=== PATIENT | male | born 1940 | race Caucasian/White ===

== ENCOUNTER 2021-01-06 09:57 | Day surgery (SDC) | payer MEDICARE, OTHER, SELFPAY ==
[2021-01-02 14:57] VITALS: BMI 30.9
[2021-01-06] VITALS (11 sets, daily range): BP systolic 102–144; BP diastolic 56–85; PULSE 60–79; RESP 12–92; TEMP 34.2–36.1; O2SAT 22–100; BMI 30.9
[2021-01-06 10:33] LABS: COVID19 -Nasal RAPID Negative (Negative)
[2021-01-06] MEDS: LACTATED RINGERS 1,000 ML 42 ML IV (10:58)
--- NOTE | 2021-01-06 11:07 | PM.PREOP ---
Pre-operative Note Interval Note History & Physical reviewed/Exam performed by Physician: Yes Changes to H&P: No
[2021-01-06] MEDS: CEFAZOLIN 1 GM VIAL 2 GM IV (11:50)
--- NOTE | 2021-01-06 11:57 | SUR.OPER ---
Lithotomy on padded OR bed, head on pillow, arms secured on padded arm boards at <90 degrees abduction. Legs secured in padded yellow fins stirrups.
[2021-01-06] MEDS: WATER FOR INJECTION,STERILE 20 ML, mitoMYcin 20 MG INTRAVESIC (12:08)
--- NOTE | 2021-01-06 12:49 | SUR.PHASEI ---
received to PACU after general anesthesia. Report received from Dr Quiroz and KIMMIE Westbrook. Oral airway in place removed at 1223 without difficulty.
--- NOTE | 2021-01-06 12:50 | P.OP_ITS ---
Operative Date/Time/Diagnoses Date of procedure: 01/06/21 Time of procedure: 12:50 Pre-op diagnosis: Recurrent bladder cancer Post-op diagnosis: same Procedure & Clinicians Procedure: 1. Transurethral resection of bladder tumor (less than 0.5 cm). 2. Instillation mitomycin-C (20 mg). Same procedure as scheduled: Yes Indications: 1. Recurrent bladder cancer Surgeon: Sherly Mckeon Click Yes if Unassisted: Yes Anesthesia Type: General Operative Notes Findings: Approximately 5 mm spreading, papillary recurrences of low anterior bladder wall and left of midline. Closure Type: not applicable Specimen(s): none sent Estimated Blood Loss (mL): 0 Blood products transfused: none Procedure in detail: Patient was positioned supine was administered general anesthesia. The flexible endoscope was then passed lower urinary tract with the findings as described above. The lesion was then cautery destroyed using the Bugbee. Hemostasis was excellent. The bladder was left post should filled in the flexible cystoscope was removed. Next, a 16 Mongolian Noel catheter was inserted, the balloon inflated 10 cc, and the bladder contents drained. He 20 cc solution containing 20 mg of mitomycin-C were then instilled in the bladder and a plug positioned in the catheter outlet for anticipated 2 hour retention. The patient was then repositioned supine, was awakened, and transferred to [facility] for transport to PACU. Complications: none Post-operative Condition: stable Disposition: PACU Plan for aftercare: Discharge home.
--- NOTE | 2021-01-06 14:44 | SUR.PHASEII ---
Spoke with patient when care was assumed. Quiet, no concerns voiced. 1415 Noel drained by Jay Zheng RN per protocol. 1425 VS taken in prep for discharge. Room air sat 83-84% - patient placed on O2 at 2LNP. Dr. Mckeon notified.
--- NOTE | 2021-01-06 14:51 | SUR.PHASEII ---
RA sat 93-94%, O2 dc'd. Patient anxious to go home.
--- NOTE | 2021-01-06 15:23 | SUR.PHASEII ---
1500 L KIMMIE Eric dc'd IV, assisted patient with dressing and transfer into wheelchair. To car by Remigio Suarez RN. Discharge teaching given to son. Patient was anxious to go home, maintained adequate sat on room air
== END 2021-01-06 15:07 | disposition home or self-care (01) ==
PROVIDERS: PCP Student in an Organized Health Care Education/Training Program; Referring Provider Specialist; Visit Provider Specialist
PROC: (CPT 52224; principal; 2021-01-06 11:45)
DX: C67.9 Malignant neoplasm of bladder, unspecified (principal); E11.9 Type 2 diabetes mellitus without complications; I10 Essential (primary) hypertension; J44.9 Chronic obstructive pulmonary disease, unspecified; I50.9 Heart failure, unspecified; I48.91 Unspecified atrial fibrillation
CPT/HCPCS: 52224; 82962; 87635; 93005; 93010; J0690; J1100; J2405; J2704; J3010; J9280

== ENCOUNTER → 2021-04-25 07:57 | Outpatient (CLI) | payer MEDICARE, OTHER, SELFPAY ==
[2021-04-25 10:17] LABS: COVID19 -Nasal RAPID Negative (Negative)
== END ==
PROVIDERS: PCP Student in an Organized Health Care Education/Training Program; Visit Provider Specialist
DX: Z20.822 Contact with and (suspected) exposure to COVID-19 (principal)
CPT/HCPCS: 87635; C9803

== ENCOUNTER 2021-04-28 12:03 | Day surgery (SDC) | payer MEDICARE, OTHER, SELFPAY ==
[2021-04-17 12:16] VITALS: BMI 29.2
[2021-04-28] VITALS (9 sets, daily range): BP systolic 115–141; BP diastolic 56–89; PULSE 58–93; RESP 14–82; TEMP 36.1–36.6; O2SAT 16–98; BMI 29.0
[2021-04-28] MEDS: LACTATED RINGERS 1,000 ML 42 ML IV (13:28)
[2021-04-28] MEDS: VANCOMYCIN 1,000 MG/200 ML PIGGYBACK 200 MG IV (13:34)
--- NOTE | 2021-04-28 15:57 | PM.PREOP ---
Pre-operative Note Interval Note History & Physical reviewed/Exam performed by Physician: Yes Changes to H&P: No
--- NOTE | 2021-04-28 16:14 | SUR.OPER ---
Lithotomy on padded OR bed, head on pillow, arms secured on padded arm boards at <90 degrees abduction. Legs secured in padded yellow fins stirrups.
[2021-04-28] MEDS: GENTAMICIN 160 MG in SODIUM CHLORIDE 0.9% 100 ML 104 ML IV (16:23)
--- NOTE | 2021-04-28 16:36 | SUR.OPER ---
Bottom dentures and glasses in labelled biohazard bag; sent with patient to PACU from OR.
[2021-04-28] MEDS: WATER FOR INJECTION,STERILE 20 ML, mitoMYcin 20 MG INTRAVESIC (16:46)
--- NOTE | 2021-04-28 17:01 | PM.OP.1 ---
Operative Date/Time/Diagnoses Date of procedure: 04/28/21 Time of procedure: 17:01 Pre-op diagnosis: Recurrent superficial urothelial carcinoma the bladder Post-op diagnosis: same Procedure & Clinicians Procedure: 1. Cystoscopy/fulguration/destruction recurrent bladder tumor. 2. Cystoscopy/installation mitomycin-C (20 mg). Same procedure as scheduled: Yes Indications: 1. Recurrent superficial urothelial carcinoma the bladder. Surgeon: Sherly Mckeon Click Yes if Unassisted: Yes Anesthesia Type: General Operative Notes Findings: 1. Urethra-2 relatively focal strictures that were annular. The tip of the 22 [place] panendoscope successfully negotiate both with consequent dilation of both. 2. External sphincter-coapted 3. Prostate-no significant obstruction. For to 4.5 cm length. 4. Bladder-1 to 2+ trabeculation. There is a healing resection bed at the left trigone. No evidence of stone. Spreading papillary recurrence at left floor and posterior trigone with irregular margins. Closure Type: not applicable Specimen(s): none sent Applied: catheter (Sixteen [place]an Noel catheter with anticipated removal following mitomycin retention x2 hours.) Estimated Blood Loss (mL): 0 Tourniquet time (min): 0 Procedure in detail: The patient was positioned in supine was administered general anesthesia. He was then repositioned semi lithotomy the lower abdomen, genitalia, and groin were then prepped and draped in sterile fashion. The 22 [place] panendoscope was then passed lower urinary tract with the findings as described above. An 8 [place] Bugbee cautery probe was then passed within the working channel of the panendoscope. Intraoperative photographs were obtained of the recurrent neoplasm before cautery destruction. The bladder was then left partially full and all instrumentation was removed. Sixteen [place]an Noel catheter was then inserted in the lower urinary tract and the balloon inflated to 10 cc. The bladder contents were then drained. A 20 cc solution containing 20 mg mitomycin C were then instilled into the bladder and a catheter plug remained for anticipated 2 hour postoperative retention. The patient was then repositioned supine, was awakened, and was transferred to recovery in stable condition. Complications: none Post-operative Condition: stable Disposition: PACU Plan for aftercare: Discharge home.
--- NOTE | 2021-04-28 19:50 | SUR.PHASEII ---
pt discharged to home with family, pt cond stable, pt verbalized understanding of discharge instructions. All belongs sent home with patient.
== END 2021-04-28 19:30 | disposition home or self-care (01) ==
PROVIDERS: PCP Student in an Organized Health Care Education/Training Program; Referring Provider Specialist; Visit Provider Specialist
PROC: 0TBB8ZZ Excision of Bladder, Via Natural or Artificial Opening Endoscopic (ICD-10-PCS; CPT 52234; principal; 2021-04-28 13:15)
DX: C67.9 Malignant neoplasm of bladder, unspecified (principal); I25.10 Atherosclerotic heart disease of native coronary artery without angina pectoris; I25.2 Old myocardial infarction; I48.0 Paroxysmal atrial fibrillation; J44.9 Chronic obstructive pulmonary disease, unspecified; E11.9 Type 2 diabetes mellitus without complications; I10 Essential (primary) hypertension; Z79.84 Long term (current) use of oral hypoglycemic drugs
CPT/HCPCS: 52234; J2704; J3010; J9280

== ENCOUNTER → 2021-09-02 08:49 | Outpatient (CLI) | payer MEDICARE, OTHER, SELFPAY ==
[2021-09-02 13:02] LABS: Appearance Urine UA SL CLOUDY; Bilirubin Urine UA NEGATIVE (NEGATIVE); Color Urine UA YELLOW; Glucose Urine UA 2+ g/dL (Negative); Ketones Urine UA TRACE (NEGATIVE); Leukocyte Esterase Urine UA NEGATIVE (NEGATIVE); Nitrite Urine UA NEGATIVE (Negative); Occult Blood Urine UA 3+ (Negative); Protein Urine UA 1+ (Negative); Specific Gravity Urine UA 1.015 (1.000-1.035); Urobilinogen Urine UA 0.2 E.U./dL (0.2); pH Urine UA 6.5 (4.5-8.0)
[2021-09-02 13:14] LABS: Bacteria Urine None Seen; Culture Indicated Urine Cult Not Indicated; RBC Urine 30-100/HPF (0-5/HPF); Squamous Epithelial Cell Urine 1-5 /HPF (0-5/HPF); WBC Urine 0-1/HPF (0-5/HPF)
== END ==
PROVIDERS: PCP Student in an Organized Health Care Education/Training Program; Referring Provider Specialist; Visit Provider Specialist
DX: R30.0 Dysuria (principal)
CPT/HCPCS: 81001

== ENCOUNTER → 2021-09-11 13:54 | Outpatient (CLI) | payer MEDICARE, OTHER, SELFPAY ==
[2021-09-11 14:48] LABS: Appearance Urine UA SL CLOUDY; Bilirubin Urine UA NEGATIVE (NEGATIVE); Color Urine UA YELLOW; Glucose Urine UA NEGATIVE (Negative); Ketones Urine UA NEGATIVE (NEGATIVE); Leukocyte Esterase Urine UA NEGATIVE (NEGATIVE); Nitrite Urine UA NEGATIVE (Negative); Occult Blood Urine UA 3+ (Negative); Protein Urine UA 2+ (Negative); Urobilinogen Urine UA 0.2 E.U./dL (0.2); pH Urine UA 6.5 (4.5-8.0)
[2021-09-11 15:05] LABS: RBC Urine >100/HPF (0-5/HPF); Squamous Epithelial Cell Urine 1-5 /HPF (0-5/HPF); WBC Urine 1-5/HPF (0-5/HPF)
[2021-09-11 15:06] LABS: Bacteria Urine None Seen; Culture Indicated Urine Cult Not Indicated; Mucus Urine 1+ (Negative)
== END ==
PROVIDERS: PCP Student in an Organized Health Care Education/Training Program; Referring Provider Specialist; Visit Provider Specialist
DX: R30.0 Dysuria (principal)
CPT/HCPCS: 81001

== ENCOUNTER → 2021-09-26 10:57 | Outpatient (CLI) | payer MEDICARE, OTHER, SELFPAY ==
[2021-09-26 11:56] LABS: BUN Creatinine Ratio 20.3 (6-22); Blood Urea Nitrogen 14 mg/dL (9-20); Calcium 9.6 mg/dL (8.4-10.2); Carbon Dioxide 30 mmol/L (22-32); Chloride 100 mmol/L (98-107); Estimated Glomerular Filt Rate > 60.0 mL/min (>60); Glucose 105 mg/dL (80-110); HEMOLYSIS 15 (0-50); Potassium 4.5 mmol/L (3.4-5.1); Sodium 138 mmol/L (137-145)
--- NOTE | 2021-09-26 12:26 | DI.CT.S_ITS ---
PROCEDURE: CT ABDOMEN PELVIS WO/W CON INDICATIONS: hematuria; history primary bladder cancer TECHNIQUE: Optional 5 mm thick noncontrast images acquired from the diaphragm to the symphysis pubis. After the administration of intravenous contrast, 5 mm thick images acquired from the diaphragm to the symphysis pubis after a 10-minute delay. 2 mm thick coronal and sagittal reformats were then performed of the kidneys and ureters. For radiation dose reduction, the following was used: automated exposure control, adjustment of mA and/or kV according to patient size. COMPARISON: [facility], CT, CT ANGIO AORTA RUNOFF, 11/10/2019, 13:25. FINDINGS: Image quality: Excellent. Lung bases: Lung bases are clear. Heart size is normal. Urinary system: Both kidneys are normal in size, without hydronephrosis or nephrolithiasis on pre-contrast images. Vascular calcifications are seen in bilateral kidneys. Bilateral renal cysts are seen measures up to 3.3 x 3 cm in size in lower pole of left kidney and up to 3 x 3.2 cm in size in upper pole of right kidney unchanged from prior study in 2019. Nonspecific mild bilateral perinephric fat stranding is seen, no perinephric fluid collection. There is normal bilateral renal enhancement. Renal calyces appear normal in morphology when filled with contrast. Opacified portions of both ureters demonstrate normal caliber. There is suggestion of diffuse bladder wall thickening, no definite discrete bladder wall mass is seen. No calcified bladder stones. Mildly enlarged prostate gland with mass effect on floor of urinary bladder is seen. Other solid organs: Liver is normal in size and enhancement. Calcified stones are seen in dependent portion of gallbladder lumen. No gallbladder wall thickening or pericholecystic fluid. Biliary system is non dilated. Pancreas enhances normally. Spleen is normal in size and enhancement. No right adrenal nodules. 2.7 x 3.2 cm hypodense nodule involving left adrenal gland is again seen not significantly changed in size compared to previous study. Peritoneum and bowel: Bowel loops demonstrate normal wall thickness and caliber. Fecal stasis throughout the colon is seen. Sigmoid diverticulosis is noted, no evidence of acute diverticulitis. No free fluid or free air. Nodes and vessels: No retroperitoneal or mesenteric adenopathy by size criteria. Aorta and inferior vena cava are normal in size. Moderate atherosclerotic calcifications throughout abdominal aorta and bilateral iliac arteries are seen. Abdominal wall: No ventral hernias. Pelvis: No pathologic free pelvic fluid. No inguinal hernias or adenopathy. Bones: No suspicious bony lesions. No vertebral body compression fractures. Degenerative disc disease throughout lower thoracic and lumbar spine is seen. IMPRESSION: 1. Diffuse bladder wall thickening, no definite bladder wall mass is seen. Mildly enlarged prostate gland with mass effect on floor of urinary bladder. Urological correlation is recommended. 2. No renal stone or hydronephrosis. No enhancing renal lesion. Bilateral renal cysts as above. Normal appearing bilateral ureters. 3. Stable appearing 3.2 x 2.7 cm left adrenal nodule and may represent benign adrenal adenoma. 4. Cholelithiasis without evidence of acute cholecystitis. 5. Moderate atherosclerotic disease throughout abdominal aorta , its major branches and bilateral iliac arteries. Dictated by: Sonu Engle M.D. on 09/26/2021 at 14:13 Approved by: Sonu Engle M.D. on 09/26/2021 at 14:30
== END ==
PROVIDERS: PCP Student in an Organized Health Care Education/Training Program; Referring Provider Specialist; Visit Provider Specialist
DX: R31.9 Hematuria, unspecified (principal); N40.0 Benign prostatic hyperplasia without lower urinary tract symptoms; N28.1 Cyst of kidney, acquired; E27.9 Disorder of adrenal gland, unspecified; K80.20 Calculus of gallbladder without cholecystitis without obstruction; I70.0 Atherosclerosis of aorta; Z85.51 Personal history of malignant neoplasm of bladder
CPT/HCPCS: 36415; 74178; 80048

== ENCOUNTER → 2021-10-01 12:59 | Outpatient (CLI) | payer MEDICARE, OTHER, SELFPAY ==
[2021-10-01 13:58] LABS: Appearance Urine UA CLOUDY; Bilirubin Urine UA NEGATIVE (NEGATIVE); Color Urine UA YELLOW; Glucose Urine UA NEGATIVE (Negative); Ketones Urine UA NEGATIVE (NEGATIVE); Leukocyte Esterase Urine UA 1+ (NEGATIVE); Nitrite Urine UA NEGATIVE (Negative); Occult Blood Urine UA 3+ (Negative); Protein Urine UA TRACE (Negative); Urobilinogen Urine UA 0.2 E.U./dL (0.2); pH Urine UA 7.5 (4.5-8.0)
[2021-10-01 14:04] LABS: Bacteria Urine None Seen; RBC Urine >100/HPF (0-5/HPF); WBC Urine 10-30/HPF (0-5/HPF)
[2021-10-01 14:05] LABS: Culture Indicated Urine Specimen Cultured
== END ==
PROVIDERS: PCP Student in an Organized Health Care Education/Training Program; Referring Provider Specialist; Visit Provider Specialist
DX: R30.0 Dysuria (principal)
CPT/HCPCS: 81001; 87086

== ENCOUNTER → 2022-01-30 11:07 | Outpatient (CLI) | payer MEDICARE, OTHER, SELFPAY ==
[2022-01-30 11:55] LABS: COVID19 -Nasal RAPID Negative (Negative)
== END ==
PROVIDERS: PCP Student in an Organized Health Care Education/Training Program; Visit Provider Specialist
DX: Z20.822 Contact with and (suspected) exposure to COVID-19 (principal)
CPT/HCPCS: 87635; C9803

== ENCOUNTER 2022-02-02 09:35 | Day surgery (SDC) | payer MEDICARE, OTHER, SELFPAY ==
--- NOTE | 2022-02-02 | PATH_ITS ---
[facility] Accession Number: [id number] No. of containers..01 Tissue . 01 Material submitted: . bladder - BLADDER BIOPSY LEFT LATERAL WALL . 01 Diagnosis: Urinary Bladder, Left Lateral Wall, Biopsy: Extensively denuded urothelium with atypia, favor reactive/degenerative changes (see comment). Severe chronic cystitis. MRV 02/05/2022 1530 Local . 01 Comment: 8Immunostains are obtained, with the controls stained appropriately, in an attempt at further defining the atypical urothelial cells of interest. The latter show the following results: . P53: Wild type pattern. Cytokeratin 20: Variably positive. Ki-67: Focally increased. . These results are not conclusively discriminatory between a reactive process versus carcinoma in situ in that the cytokeratin 20 pattern appears abnormal, yet is not completely uniform (as would be expected in in situ lesion). Additionally, the Ki-67 is very focally increased with a vast majority showing a low proliferation rate. The wild type pattern of p53 supports a reactive process. Ultimately, the interpretation is favored to represent a reactive lesion, although this is not considered diagnostic. This case is also reviewed by Dr. Krystle Michelle, who concurs with the given interpretation. . *This test was developed and its performance characteristics determined by [facility]. It has not been cleared or approved by the U.S. Food and Drug Administration. The FDA has determined that such clearance or approval is not necessary. This test is used for clinical purposes. It should not be regarded as investigational or for research. . 01 Electronically signed: . Meenakshi Turner MD, Pathologist NPI- [id number] . 01 Gross description: . BLADDER BIOPSY LEFT LATERAL WALL: Received in formalin are multiple fragment(s) of vasques, soft tissue measuring 0.1 x 0.1 x 0.1 cm to 0.3 x 0.2 x 0.2 cm submitted entirely in 1 cassette(s) /[facility] 02/03/2022 0138 Local . 01 Pathologist provided ICD-10: C67.9 . 01 CPT . 264386, E19898, B98407 Specimen Comment: A courtesy copy of this report has been sent to [phone] Performed at: 01 [facility] [address] [place] [address], [place], [place] [id number] MD Phillip Downing MD Phone: [phone]
--- NOTE | 2022-02-02 | PATH_ITS ---
Note [facility] Accession Number: [id number] TESTS RESULT FLAG UNITS REF RANGE LAB Clinician Provided Cytology Information No. of containers..01 Urine Bottle Source: URINE DIAGNOSIS: URINE INCONCLUSIVE. ATYPICAL UROTHELIAL CELLS ARE PRESENT. Pathologist ICD10: R82.89 Signed out by: Anali Lopez MD, Pathologist NPI- [id number] Performed by: Garcia Shepard, Community Resource Consultant ([facility]) Gross description: 60 CC, YELLOW, CLEAR RECEIVED: FRESH IN ORANGE CAP CONTAINER. /[facility] 02/03/2022 0728 Local FLAG LEGEND: L-Low Normal,H-High Normal,LL-Alert Low,HH-Alert High <-Panic Low,>-Panic High,A-Abnormal,AA-Critical Abnormal Performed at: 01 =Z [facility] [address] [place] [address] [address], [place] [address] Phillip Downing MD, Performed at: 01 [facility] [address], [place], [place] [id number] MD Phillip Downing MD Phone: [phone]
[2022-02-02 10:04] VITALS: BP 140/72; PULSE 77; RESP 16; TEMP 36.4; O2SAT 95; BMI 28.7
--- NOTE | 2022-02-02 10:04 | PM.HP.1 ---
History of Present Illness History of Present Illness Date Patient Seen: 02/02/22 Time Patient Seen: 10:04 Chief complaint: SDC Narrative: Socrates is an 81-year-old gentleman presenting today for scheduled cystoscopy/bladder biopsy/transurethral resection of bladder tumor/installation mitomycin-C. He has a history of recurrent urothelial carcinoma the bladder status post several previous resections over the last approximate decade. Most recently on 04/28/2021 a highly suspicious region was fulgurated extensively at the left anterior superior bladder wall. On scheduled follow-up bladder tumor surveillance cystoscopy 01/01/2022, 3+ blood was noted on urinalysis. Office cystoscopy then revealed a very erythematous and intense, irregularly bordered region at the left lateral bladder wall. At the posterior margin there was a elevated, papillary appearing lesion noted. Patient History Medical History (Updated 01/29/22 @ 14:59 by Lin Meadows RN) Afib Arthritis Bladder cancer Bladder cancer BPH loc w urin obs/LUTS BPH w urinary obs/LUTS Bulbous urethral stricture Cancer Congestive heart failure COPD (chronic obstructive pulmonary disease) Diabetes Erectile dysfunction Hematuria High blood pressure History of nephrolithiasis History of primary bladder cancer Kyphosis Myocardial infarction (1996) Recurrent malignant neoplasm of bladder Rheumatoid arthritis Self-catheterizes urinary bladder Urinary calculi Surgical History (Updated 01/29/22 @ 15:01 by Lin Meadows RN) History of surgery (12/05/19) History of transurethral destruction of bladder lesion (01/06/21) Hx of cystoscopy (12/24/20) Hx of cystoscopy (04/09/21) Hx of cystoscopy (04/30/21) Previous back surgery Total knee replacement status Family & Social History Social History: household members children Tobacco & Substance use: Smoking Status Former smoker alcohol intake current alcohol intake frequency 0-2 drinks per day Substance Use Type does not use Meds Home Medications and Allergies Home Medications Medication Instructions Recorded Confirmed Type alprazolam 1 mg tablet 1 mg PO DAILY 05/27/20 02/02/22 History apixaban 5 mg tablet (Eliquis) 5 mg PO BID 05/27/20 02/02/22 History atorvastatin 40 mg tablet 40 mg PO DAILY 05/27/20 02/02/22 History benazepril 10 mg tablet 10 mg PO DAILY 05/27/20 02/02/22 History bupropion HCl 100 mg tablet 100 mg PO BID 05/27/20 02/02/22 History diltiazem HCl 180 mg capsule,24 180 mg PO DAILY 05/27/20 01/29/22 History hr,extended release hydrochlorothiazide 50 mg tablet 50 mg PO DAILY 05/27/20 02/02/22 History metformin 500 mg tablet 500 mg PO BID 05/27/20 01/29/22 History finasteride 5 mg tablet 5 mg PO DAILY #90 tabs 09/18/21 02/02/22 Rx Allergies Allergy/AdvReac Type Severity Reaction Status Date / Time Penicillins Allergy doesn't Verified 01/01/22 11:00 remember 'may have been breathing issue' Review of Systems Review of Systems ROS: Yes All systems reviewed with the patient and are negative except as otherwise documented Exam Narrative Exam Narrative: He is a well-developed, moderately over nourished, elderly gentleman appearing chronically ill. Head/neck-sclera clear and pupils are round and equal. No visible evidence of adenopathy JVD. Chest-equal and unlabored expansion bilaterally. Heart-normal sinus rhythm. Assessment & Plan Assessment and plan (1) Recurrent malignant neoplasm of bladder: Status: Acute (2) BPH w urinary obs/LUTS: Status: Acute (3) History of nephrolithiasis: Status: Acute (4) History of primary bladder cancer: Status: Acute (5) Bulbous urethral stricture: Status: Acute Plan 1. Proceed with CYSTOSCOPY/BLADDER BIOPSY/TRANSURETHRAL RESECTION BLADDER TUMOR/INSTALLATION MITOMYCIN-C (20 mg). Reviewed findings, discussed impression, and overview of operative plan. Previous lengthy informed consent was obtained just over 30 days ago. Current history and physical examination is updated today due to hospital policy and protocol. The patient has no interval new clarifying concerns or complaints. Time Spent With Patient Critical Care time: I spent a total of [] minutes of critical care time on this patient's care today; this time is exclusive of procedural time.
--- NOTE | 2022-02-02 10:08 | PM.PREOP ---
Pre-operative Note COVID-19 Criteria for continued procedure: Possibility delay results in more complex future surgery or treatment, Deterioration of the patient's condition or overall health, Delay expected to result in less-positive ultimate med/surg outcome and Non-surgical alternatives not available or appropriate per current SOC Interval Note History & Physical reviewed/Exam performed by Physician: Yes Changes to H&P: No
[2022-02-02] MEDS: LACTATED RINGERS 1,000 ML 42 ML IV (10:21)
[2022-02-02] MEDS: VANCOMYCIN 1,000 MG/200 ML PIGGYBACK 200 MG IV (10:21)
[2022-02-02] MEDS: GENTAMICIN 80 MG in SODIUM CHLORIDE 0.9% 100 ML 102 MG IV (10:47)
[2022-02-02] MEDS: WATER FOR INJECTION,STERILE 20 ML, mitoMYcin 20 MG INTRAVESIC (11:19)
--- NOTE | 2022-02-02 11:19 | SUR.OPER ---
Lithotomy on padded OR bed, head on pillow, arms secured on padded arm boards at <90 degrees abduction. Legs secured in padded yellow fins stirrups.
[2022-02-02] MEDS: BELLADONNA/OPIUM SUPPOSITORIES 1 EACH PR (11:20)
[2022-02-02 11:33] VITALS: BP 134/86; PULSE 74; RESP 16; TEMP 36.8; O2SAT 96
--- NOTE | 2022-02-02 11:38 | PM.OP.1 ---
Operative Date/Time/Diagnoses Date of procedure: 02/02/22 Time of procedure: 11:38 Pre-op diagnosis: 1. Recurrent urothelial carcinoma the bladder. Post-op diagnosis: same Procedure & Clinicians Procedure: 1. Cystoscopy/bladder biopsy. 2. Transurethral resection of bladder tumor. 3. Installation mitomycin-C(20 mg). 4. Cystoscopy/dilation recurrent bulbar urethral stricture. Same procedure as scheduled: Yes Indications: 1. Recurrent urothelial carcinoma left lateral bladder wall. Surgeon: Sherly Mckeon Click Yes if Unassisted: Yes Anesthesia Type: General Operative Notes Findings: 1. Urethra-normal penile and distal bulbar segment. There is a 14-16 Slovenian recurrent partially disrupted proximal bulbar urethral stricture. 2. External sphincter-coapted with normal overlying urothelium. 3. Jockgifw-6-0.5 cm length with moderate trilobar hyperplasia. 4. Bladder-1 to 2+ trabeculation. Normal ureteral orifices bilaterally. More or less, directly posterior to the left ureter on the lower left lateral bladder wall is an area of irregular raised erythema and papillary elevation previously described an outpatient cystoscopy report. Closure Type: not applicable Prosthetic devices, grafts, tissues, transplants, or devices: 1. Urine for cytology. 2. Bladder neoplasm-left lateral wall. Applied: catheter (Sixteen Slovenian [address] Noel catheter.) Estimated Blood Loss (mL): 1 Blood products transfused: none Procedure in detail: Patient was positioned supine was administered general anesthesia. He was then repositioned semi lithotomy and the lower abdomen, genitalia, and groin were then prepped and draped in sterile fashion. The resectoscope was then advanced lower urinary tract with the findings as described above. The above-mentioned bulbar urethral stricture was negotiated and dilated gently and successfully with passage of the visual resectoscope. Next, the resectoscope was fitted with the biopsy forceps. Cold resection of entire visualized portion of the neoplasm was performed and submitted to pathology for routine gross and microscopic examination. Next, the working element of the resectoscope was fitted with a cautery loop and the biopsy bed in perimeter were cauterized for hemostasis and any residual margin of neoplasm not immediately visible to the magnified images endoscopically. The bladder was then partially filled the resectoscope was removed. A 16 Slovenian Noel catheter was then inserted, the balloon inflated to 10 cc, and its contents were drained. A 20 cc solution containing 20 mg of mitomycin-C were then instilled into the bladder through the 16 [place]ian Noel catheter in usual fashion. The patient was then repositioned in supine, was awakened common that was translated PACU in stable condition. Complications: none Post-operative Condition: stable Disposition: PACU Plan for aftercare: 1. Discharge home with indwelling Noel catheter. 2. Arrange supervised outpatient voiding trial in approximately 5 days. 3. Mitomycin retention x2 hours post installation.
[2022-02-02 11:55] VITALS: BP 120/65; PULSE 64; RESP 16; O2SAT 96
--- NOTE | 2022-02-02 12:05 | SUR.PHASEII ---
Pt to OPD 2. Pt denies pain. States need to pee. Educated on babcock clamp until 1330. Tolerating juice. turned on right side.
[2022-02-02 14:40] VITALS: BP 122/72; PULSE 77; RESP 16; TEMP 36.8; O2SAT 98
== END 2022-02-02 15:21 | disposition home or self-care (01) ==
PROVIDERS: PCP Student in an Organized Health Care Education/Training Program; Referring Provider Specialist; Visit Provider Specialist
PROC: 0TBB8ZZ Excision of Bladder, Via Natural or Artificial Opening Endoscopic (ICD-10-PCS; CPT 52234; principal; 2022-02-02 10:45)
DX: C67.2 Malignant neoplasm of lateral wall of bladder (principal); N30.20 Other chronic cystitis without hematuria; N35.912 Unspecified bulbous urethral stricture, male; N32.89 Other specified disorders of bladder; N13.8 Other obstructive and reflux uropathy; I10 Essential (primary) hypertension; E11.9 Type 2 diabetes mellitus without complications; I25.2 Old myocardial infarction; J44.9 Chronic obstructive pulmonary disease, unspecified; I48.91 Unspecified atrial fibrillation; I50.9 Heart failure, unspecified; F13.20 Sedative, hypnotic or anxiolytic dependence, uncomplicated; Z87.442 Personal history of urinary calculi; Z79.01 Long term (current) use of anticoagulants; Z79.84 Long term (current) use of oral hypoglycemic drugs
CPT/HCPCS: 52234; 51720; 00912; 82962; J2250; J2704; J3010; J9280